=== PATIENT | female | born 1995 | race Caucasian/White ===

== ENCOUNTER 2021-11-21 20:48 | Emergency (ER) | payer SELFPAY ==
[2021-11-21 20:53] VITALS: BP 116/78; PULSE 67; RESP 16; TEMP 36.8; O2SAT 99; BMI 17.8
--- NOTE | 2021-11-21 21:06 | ED_ITS ---
HPI - Dental/Oral General: Chief complaint: Dental/Oral Stated complaint: Tooth Ache Time Seen by Provider: 11/21/21 21:03 Source: patient Mode of arrival: ambulatory Limitations: no limitations History of Present Illness: 26-year-old female states been having left lower dental pain over the last 2 days states that it was severe she rates it a 9 out of 10. Patient denies any trismus denies any fevers she has had a tooth pulled on that side before. Denies any worsening proving factors. Associated symptoms: Denies fever(s) Review of Systems Const: Denies: fever(s), chills, body aches or change in appetite Eyes: Denies: blurry vision or eye discomfort ENMT: Reports: mouth pain Card: Denies: chest pain Resp: Denies: dyspnea GI: Denies: abdominal pain, nausea, vomiting or diarrhea : Denies: dysuria Musc: Denies: neck pain or back pain Skin/Breast: Denies: rash Neuro: Denies: headache(s) Psych: Denies: depression Aidan/Lymph: Denies: easy bruising All/Imm: Denies: urticaria PFSH ED PFSH: Medical History (Updated 11/21/21 @ 21:11 by Elvis Robles MD) No pertinent past medical history Social History (Updated 11/21/21 @ 21:11 by Elvis Robles MD) Substance/Drug Use: never Female Reproductive History: Date of last menstrual period: 11/19/21 Physical Exam Const: COMMON NORMALS: no acute distress HENMT: COMMON NORMALS: normocephalic and atraumatic HEAD & SCALP: normocephalic and atraumatic OTHER: detnal mini to left lower molar tenderness and inflamation and abscess Eye: COMMON NORMALS: conjunctivae normal CONJUNCTIVA: Yes conjunctivae normal Neck/C-Spine: COMMON NORMALS: full ROM and supple Chest: COMMONS NORMALS: normal inspection of the chest Resp: COMMON NORMALS: normal respiratory effort Cardio: COMMON NORMALS: regular rate RATE: regular rate GI: INSPECTION: Yes normal to inspection Extremity: COMMON NORMALS: normal to inspection and full ROM Neuro: COMMON NORMALS: moves all extremities and no focal motor deficits Psych: COMMON NORMALS: mental status grossly normal, Normal thought process present and cooperative THOUGHT PROCESS: Normal thought process present Skin: COMMON NORMALS: no rashes or lesions noted and no wounds GENERAL SKIN EXAM: no rashes or lesions noted Course Vital Signs: Vital signs: Vital Signs Temperature 98.2 F 11/21/21 20:53 Pulse Rate 67 11/21/21 20:53 Respiratory Rate 16 11/21/21 20:53 Blood Pressure 116/78 11/21/21 20:53 Pulse Oximetry 99 11/21/21 20:53 Oxygen Delivery Me thod 11/21/21 20:53 MDM - Dental/Oral Medical Decision Making Patient presents here with dental pain she does have dental caries no abscess no trismus we will start on antibiotics she is to follow-up with her dentist she is stable for discharge. Discharge Plan Discharge Patient Disposition: Home Clinical Impression: Toothache Condition: Stable Discharge Orders: Discharge ED (Routine); Ordered 11/21/21 Ordered By: Elvis Robles Discharge Diet: Advance as tolerated Discharge Activity: Resume usual activity Patient Instructions: Opioid Safety Coding Level of Care Code ED [employer] for Flora Abbott
[2021-11-21] MEDS: HYDROcodone-acetaminophen 5-325 mg Tablet 1 TAB PO (21:15)
[2021-11-21] MEDS: cephALEXin 500 mg Capsule PO (21:16)
== END 2021-11-21 21:56 | disposition home or self-care (01) ==
PROVIDERS: Emergency Provider Emergency Medicine
DX: K08.89 Other specified disorders of teeth and supporting structures (principal)
CPT/HCPCS: 99283